=== PATIENT | male | born 1960 | race Caucasian/White ===

== ENCOUNTER 2019-01-27 14:06 | Inpatient (IN) ==
[2019-01-27 14:51] LABS: Basophils # 0.1 K/mcL (0.0-0.2); Basophils % 0.3 %; Eosinophils # 0.2 K/mcL (0.0-0.6); Hematocrit 49.2 % (37.5-50.1); Hemoglobin 15.5 g/dL (12.9-16.9); Immature Granulocytes % 0.7 % (0-4); Lymphocytes # 1.4 K/mcL (0.6-4.6); Lymphocytes % 7.8 %; Mean Corpuscular HGB Conc 31.5 g/dL (31.6-35.5); Mean Corpuscular Hemoglobin 25.8 pg (28.0-33.3); Mean Corpuscular Volume 81.9 fL (83.0-100.0); Mean Platelet Volume 11.3 fL (9.4-12.4); Monocytes # 1.1 K/mcL (0.0-1.3); Neutrophils # 15.5 K/mcL (1.6-8.9); Platelet Count 293 K/mcL (140-400); Red Blood Count 6.01 M/mcL (4.19-5.50); Red Cell Distribution Width 15.7 % (11.5-14.5); Segmented Neutrophils % 84.2 %; White Blood Count 18.4 K/mcL (4.3-11.1)
[2019-01-27] MEDS ORDERED: 0.9 % Sodium Chloride 1,000 ML IVC ONE (14:53)
[2019-01-27] MEDS ORDERED: Ondansetron 4 MG/2 ML VIAL IVP ONE (14:53)
[2019-01-27] MEDS ORDERED: *HR* HYDROmorphone 2 MG/ML SYRINGE IVP STA ×2 (14:56→17:59)
[2019-01-27] MEDS ORDERED: Isovue-370 500 ML BOTTLE IVP ONE (14:58)
[2019-01-27 15:01] LABS: BUN/Creatinine Ratio 20 (6-26); Blood Urea Nitrogen 16 mg/dL (6-20); Calcium 9.4 mg/dL (8.6-10.3); Carbon Dioxide 23 mEq/L (23-29); Chloride 101 mEq/L (98-107); Glucose 140 mg/dL (70-105); Osmolality,Calculated 285 (280-300); Sodium 136 mEq/L (136-145); eGFR For African Americans > 60 (> 60); eGFR For Non-African Americans > 60 (> 60)
[2019-01-27 16:38] LABS: Alanine Aminotransferase 18 Units/L (7-52); Albumin 4.5 g/dL (3.5-5.7); Albumin/Globulin Ratio 1.3 (1.1-2.2); Alkaline Phosphatase 101 Units/L (34-104); Aspartate Amino Transferase 25 Units/L (13-39); Bilirubin,Direct 0.1 mg/dL (0.0-0.2); Bilirubin,Indirect 0.4 mg/dL (0.0-1.0); Bilirubin,Total 0.5 mg/dL (0.3-1.0); Globulin 3.6 g/dL (2.4-3.5); Lipase 422 Units/L (11-82); Total Protein 8.1 g/dL (6.4-8.9)
[2019-01-27] MEDS ORDERED: Ondansetron 4 MG/2 ML VIAL IVP STA (17:00)
[2019-01-27 17:01] LABS: Bilirubin,Urine Small (Negative); Blood,Urine Negative (Negative); Clarity,Urine Clear (Clear); Color,Urine Dark Yellow (Yellow); Glucose,Urine (UA) Normal (Normal); Ketones,Urine Trace mg/dL (Negative); Leukocyte Esterase,Urine Negative (Negative); Nitrite,Urine Negative (Negative); Protein,Urine 100 mg/dL (Neg-Trace); Specific Gravity,Urine > 1.030 (1.010-1.025); Urobilinogen,Urine Normal (Normal)
[2019-01-27 17:05] LABS: Bacteria,Urine None Seen per hpf (None-Few); Hyaline Casts,Urine Moderate per lpf (None-Few); Squamous Epithelial Cell,Urine Many per lpf (None-Few)
[2019-01-27 17:21] LABS: Mucus,Urine Moderate (Few)
[2019-01-27] MEDS ORDERED: *HR* Metoprolol 5 MG/5 ML VIAL IVP PRN (20:35)
[2019-01-27] MEDS: 0.9 % Sodium Chloride 1,000 ML IVC SCH (21:50)
[2019-01-27] MEDS: Piperacillin/Tazobactam 3.375 GM in 0.9 % Sodium Chloride Mini Bag 100 ML IVPB SCH (21:50)
[2019-01-27] MEDS: Ondansetron 4 MG/2 ML VIAL IVP PRN (21:51)
[2019-01-28 02:50] LABS: Basophils % 0.2 %; Eosinophils % 0.1 %; Hematocrit 44.8 % (37.5-50.1); Immature Granulocytes % 0.4 % (0-4); Lymphocytes % 6.6 %; Mean Corpuscular HGB Conc 31.3 g/dL (31.6-35.5); Mean Corpuscular Hemoglobin 25.6 pg (28.0-33.3); Mean Corpuscular Volume 82.1 fL (83.0-100.0); Mean Platelet Volume 11.1 fL (9.4-12.4); Monocytes # 0.9 K/mcL (0.0-1.3); Neutrophils # 12.9 K/mcL (1.6-8.9); Platelet Count 263 K/mcL (140-400); Red Blood Count 5.46 M/mcL (4.19-5.50); Red Cell Distribution Width 15.6 % (11.5-14.5); Segmented Neutrophils % 86.7 %; White Blood Count 14.9 K/mcL (4.3-11.1)
[2019-01-28 03:09] LABS: Amylase 69 Units/L (29-103); BUN/Creatinine Ratio 22 (6-26); Blood Urea Nitrogen 15 mg/dL (6-20); Calcium 8.5 mg/dL (8.6-10.3); Carbon Dioxide 25 mEq/L (23-29); Chloride 103 mEq/L (98-107); Glucose 139 mg/dL (70-105); Lipase 68 Units/L (11-82); Osmolality,Calculated 287 (280-300); Potassium 4.1 mEq/L (3.5-5.1); Sodium 137 mEq/L (136-145); eGFR For African Americans > 60 (> 60); eGFR For Non-African Americans > 60 (> 60)
[2019-01-28] MEDS: Ondansetron 4 MG/2 ML VIAL IVP PRN (04:42)
[2019-01-28] MEDS: *HR* Heparin 5,000 UNIT/ML VIAL SQ SCH ×2 (06:30→17:37)
[2019-01-28] MEDS: Piperacillin/Tazobactam 3.375 GM in 0.9 % Sodium Chloride Mini Bag 100 ML IVPB SCH ×2 (06:30→16:08)
[2019-01-28] MEDS: Pantoprazole 40 MG VIAL IVP SCH (08:38)
[2019-01-28] MEDS: 0.9 % Sodium Chloride 1,000 ML IVC SCH (11:40)
[2019-01-29] MEDS ORDERED: Saline Nasal Spray 44 ML BOTTLE NS PRN (00:39)
[2019-01-29] MEDS: Piperacillin/Tazobactam 3.375 GM in 0.9 % Sodium Chloride Mini Bag 100 ML IVPB SCH ×3 (01:59→19:03)
[2019-01-29 02:49] LABS: Basophils # 0.1 K/mcL (0.0-0.2); Basophils % 0.6 %; Eosinophils # 0.2 K/mcL (0.0-0.6); Hematocrit 40.2 % (37.5-50.1); Immature Granulocytes % 0.5 % (0-4); Lymphocytes # 2.3 K/mcL (0.6-4.6); Lymphocytes % 19.6 %; Mean Corpuscular HGB Conc 30.6 g/dL (31.6-35.5); Mean Corpuscular Hemoglobin 25.3 pg (28.0-33.3); Mean Corpuscular Volume 82.7 fL (83.0-100.0); Monocytes % 8.7 %; Neutrophils # 7.9 K/mcL (1.6-8.9); Platelet Count 240 K/mcL (140-400); Red Blood Count 4.86 M/mcL (4.19-5.50); Red Cell Distribution Width 15.7 % (11.5-14.5); Segmented Neutrophils % 68.6 %; White Blood Count 11.6 K/mcL (4.3-11.1)
[2019-01-29 02:50] LABS: Hemoglobin 12.3 g/dL (12.9-16.9)
[2019-01-29 03:14] LABS: BUN/Creatinine Ratio 23 (6-26); Blood Urea Nitrogen 14 mg/dL (6-20); Calcium 7.9 mg/dL (8.6-10.3); Carbon Dioxide 24 mEq/L (23-29); Chloride 103 mEq/L (98-107); Glucose 87 mg/dL (70-105); Osmolality,Calculated 282 (280-300); Potassium 3.5 mEq/L (3.5-5.1); Sodium 136 mEq/L (136-145); eGFR For African Americans > 60 (> 60); eGFR For Non-African Americans > 60 (> 60)
[2019-01-29] MEDS: 0.9 % Sodium Chloride 1,000 ML IVC SCH ×2 (05:41→19:03)
[2019-01-29] MEDS: *HR* Heparin 5,000 UNIT/ML VIAL SQ SCH ×2 (05:42→19:04)
[2019-01-29] MEDS: Pantoprazole 40 MG VIAL IVP SCH (08:52)
[2019-01-29 14:56] VITALS: BP 135/83
== END 2019-01-29 20:00 | disposition home or self-care (01) | DRG 394 ==
LOC: 3ANU 14:06 → EMEROOARM 14:06 → 3ANU 19:37
PROVIDERS: ADMIT Surgery; ATTEND Surgery

== ENCOUNTER 2020-01-17 20:43 | Inpatient (IN) ==
[2020-01-17] MEDS ORDERED: 0.9 % Sodium Chloride 1,000 ML IVC ONE (21:16)
[2020-01-17] MEDS ORDERED: Isovue-370 500 ML BOTTLE IVP ONE (21:25)
[2020-01-17 22:00] LABS: Bacteria,Urine Few per hpf (None-Few); Bilirubin,Urine Negative (Negative); Blood,Urine Trace (Negative); Clarity,Urine Clear (Clear); Color,Urine Light-Yellow (Yellow); Glucose,Urine (UA) Normal (Normal); Ketones,Urine Negative (Negative); Leukocyte Esterase,Urine Small (Negative); Mucus,Urine Few per lpf (None-Few); Nitrite,Urine Negative (Negative); PH,Urine 6.5 pH Units (5.0-8.0); Protein,Urine Trace mg/dL (Neg-Trace); Specific Gravity,Urine 1.028 (1.010-1.025); Squamous Epithelial Cell,Urine Few per hpf (None-Few); WBC,Urine 15-30 per hpf (0-3)
[2020-01-17 22:03] LABS: Basophils % 0.4 %; Eosinophils # 0.1 K/mcL (0.0-0.6); Eosinophils % 0.7 %; Hematocrit 40.2 % (37.5-50.1); Hemoglobin 12.6 g/dL (12.9-16.9); Immature Granulocytes % 0.4 % (0-4); Lymphocytes # 0.6 K/mcL (0.6-4.6); Lymphocytes % 5.4 %; Mean Corpuscular HGB Conc 31.3 g/dL (31.6-35.5); Mean Corpuscular Hemoglobin 24.9 pg (28.0-33.3); Mean Corpuscular Volume 79.4 fL (83.0-100.0); Mean Platelet Volume 10.5 fL (9.4-12.4); Monocytes # 0.6 K/mcL (0.0-1.3); Monocytes % 5.5 %; Platelet Count 214 K/mcL (140-400); Red Blood Count 5.06 M/mcL (4.19-5.50); Red Cell Distribution Width 14.8 % (11.5-14.5); Segmented Neutrophils % 87.6 %; White Blood Count 11.4 K/mcL (4.3-11.1)
[2020-01-17 22:07] LABS: INR 1.2; Prothrombin Time 14.3 Seconds (9.4-12.1)
[2020-01-17 22:09] LABS: Activated Partial Thrombo Time 33.8 Seconds (26.0-36.0)
[2020-01-17 22:24] LABS: Alanine Aminotransferase 13 Units/L (7-52); Albumin 3.8 g/dL (3.5-5.7); Albumin/Globulin Ratio 1.1 (1.1-2.2); Alkaline Phosphatase 82 Units/L (34-104); Aspartate Amino Transferase 18 Units/L (13-39); BUN/Creatinine Ratio 21 (6-26); Bilirubin,Direct 0.1 mg/dL (0.0-0.2); Bilirubin,Indirect 0.3 mg/dL (0.0-1.0); Bilirubin,Total 0.4 mg/dL (0.3-1.0); Blood Urea Nitrogen 12 mg/dL (8-23); Calcium 8.4 mg/dL (8.6-10.3); Carbon Dioxide 26 mEq/L (23-29); Chloride 102 mEq/L (98-107); Globulin 3.5 g/dL (2.4-3.5); Glucose 118 mg/dL (70-105); Magnesium 1.8 mg/dL (1.6-2.6); Osmolality,Calculated 287 (280-300); Potassium 3.6 mEq/L (3.5-5.1); Sodium 138 mEq/L (136-145); Total Protein 7.3 g/dL (6.4-8.9); Troponin I < 0.03 ng/mL (< 0.04); eGFR For African Americans > 60 (> 60); eGFR For Non-African Americans > 60 (> 60)
[2020-01-17] MEDS ORDERED: Isovue-370 500 ML BOTTLE PO ONE (22:42)
[2020-01-18] MEDS ORDERED: Isovue-370 500 ML BOTTLE IVP ONE (01:34)
[2020-01-18] MEDS ORDERED: Piperacillin/Tazobactam 3.375 GM in 0.9 % Sodium Chloride Mini Bag 100 ML IVPB ONE (01:35)
[2020-01-18] MEDS ORDERED: Vancomycin 2,000 MG/520 ML IV.SOLN IVPB ONE ×2 (01:45→14:00)
[2020-01-18] MEDS ORDERED: Naloxone 0.4 MG/ML INJ IVP PRN (07:35)
[2020-01-18] MEDS ORDERED: Ondansetron 4 MG/2 ML VIAL IVP PRN (07:35)
[2020-01-18] MEDS ORDERED: Saline Nasal Spray 44 ML BOTTLE NS ONE (09:49)
[2020-01-18] MEDS: 0.9 % Sodium Chloride 1,000 ML IVC SCH ×2 (09:55→21:23)
[2020-01-18] MEDS ORDERED: Piperacillin/Tazobactam 3.375 GM in 0.9 % Sodium Chloride Mini Bag 100 ML IVPB SCH (10:00)
[2020-01-18] MEDS: Fluticasone Propionate Nasal 50 MCG/SPRAY BOTTLE NS SCH (10:39)
[2020-01-18] MEDS: Acetaminophen 325 MG TABLET PO PRN ×2 (12:22→21:14)
[2020-01-18] MEDS: Piperacillin/Tazobactam 3.375 GM in 0.9 % Sodium Chloride Mini Bag 100 ML IVPB SCH ×2 (13:30→21:14)
[2020-01-18 15:50] LABS: Albumin 3.4 g/dL (3.5-5.7); Albumin/Globulin Ratio 1.2 (1.1-2.2); Bilirubin,Direct 0.2 mg/dL (0.0-0.2); Bilirubin,Indirect 0.3 mg/dL (0.0-1.0); Bilirubin,Total 0.5 mg/dL (0.3-1.0); Globulin 2.9 g/dL (2.4-3.5); Total Protein 6.3 g/dL (6.4-8.9)
[2020-01-18] MEDS: *HR* Heparin 5,000 UNIT/ML VIAL SQ SCH (17:18)
[2020-01-19] MEDS: Vancomycin 1,500 MG/265 ML IV.SOLN IVPB SCH ×2 (01:34→18:02)
[2020-01-19] MEDS: Acetaminophen 325 MG TABLET PO PRN ×3 (05:27→20:16)
[2020-01-19] MEDS: Piperacillin/Tazobactam 3.375 GM in 0.9 % Sodium Chloride Mini Bag 100 ML IVPB SCH ×3 (05:27→22:09)
[2020-01-19] MEDS: *HR* Heparin 5,000 UNIT/ML VIAL SQ SCH ×2 (05:28→19:28)
[2020-01-19 05:59] LABS: Basophils # 0.1 K/mcL (0.0-0.2); Basophils % 0.6 %; Eosinophils % 0.3 %; Hematocrit 38.9 % (37.5-50.1); Hemoglobin 11.6 g/dL (12.9-16.9); Immature Granulocytes % 0.6 % (0-4); Lymphocytes # 1.4 K/mcL (0.6-4.6); Lymphocytes % 15.9 %; Mean Corpuscular HGB Conc 29.8 g/dL (31.6-35.5); Mean Corpuscular Hemoglobin 24.5 pg (28.0-33.3); Mean Corpuscular Volume 82.1 fL (83.0-100.0); Mean Platelet Volume 11.3 fL (9.4-12.4); Monocytes # 0.9 K/mcL (0.0-1.3); Monocytes % 10.5 %; Neutrophils # 6.2 K/mcL (1.6-8.9); Platelet Count 171 K/mcL (140-400); Red Blood Count 4.74 M/mcL (4.19-5.50); Segmented Neutrophils % 72.1 %; White Blood Count 8.6 K/mcL (4.3-11.1)
[2020-01-19 07:17] LABS: BUN/Creatinine Ratio 11 (6-26); Blood Urea Nitrogen 7 mg/dL (8-23); Calcium 8.1 mg/dL (8.6-10.3); Carbon Dioxide 26 mEq/L (23-29); Chloride 102 mEq/L (98-107); Glucose 100 mg/dL (70-105); Osmolality,Calculated 278 (280-300); Phosphorous 2.5 mg/dL (2.7-4.5); Potassium 3.3 mEq/L (3.5-5.1); Sodium 135 mEq/L (136-145); eGFR For African Americans > 60 (> 60); eGFR For Non-African Americans > 60 (> 60)
[2020-01-19] MEDS: 0.9 % Sodium Chloride 1,000 ML IVC SCH (10:35)
[2020-01-19] MEDS: Cholecalciferol (D-3) 1,000 UNIT (25MCG) TABLET PO SCH (10:36)
[2020-01-19] MEDS: Loratadine 10 MG TABLET PO SCH (10:36)
[2020-01-19] MEDS: Fluticasone Propionate Nasal 50 MCG/SPRAY BOTTLE NS SCH (10:37)
[2020-01-19] MEDS: Cyanocobalamin (B-12) 1,000 MCG TABLET PO SCH (10:40)
[2020-01-19] MEDS: Vancomycin 2,000 MG/520 ML IV.SOLN IVPB SCH (16:29)
[2020-01-19] MEDS: Diclofenac Sodium (DR) 75 MG TABLET.DR PO PRN (20:16)
[2020-01-20] MEDS: Piperacillin/Tazobactam 3.375 GM in 0.9 % Sodium Chloride Mini Bag 100 ML IVPB SCH ×3 (05:14→21:28)
[2020-01-20] MEDS: *HR* Heparin 5,000 UNIT/ML VIAL SQ SCH ×2 (05:15→18:00)
[2020-01-20] MEDS: Vancomycin 2,000 MG/520 ML IV.SOLN IVPB SCH ×2 (05:15→18:01)
[2020-01-20] MEDS: 0.9 % Sodium Chloride 1,000 ML IVC SCH (05:16)
[2020-01-20 07:12] LABS: Basophils % 0.7 %; Eosinophils # 0.2 K/mcL (0.0-0.6); Hematocrit 38.2 % (37.5-50.1); Hemoglobin 11.6 g/dL (12.9-16.9); Immature Granulocytes % 0.9 % (0-4); Lymphocytes # 1.2 K/mcL (0.6-4.6); Mean Corpuscular HGB Conc 30.4 g/dL (31.6-35.5); Mean Corpuscular Hemoglobin 24.9 pg (28.0-33.3); Mean Platelet Volume 10.8 fL (9.4-12.4); Monocytes # 0.7 K/mcL (0.0-1.3); Monocytes % 12.1 %; Neutrophils # 3.5 K/mcL (1.6-8.9); Platelet Count 182 K/mcL (140-400); Red Blood Count 4.66 M/mcL (4.19-5.50); Red Cell Distribution Width 15.1 % (11.5-14.5); Segmented Neutrophils % 61.3 %; White Blood Count 5.7 K/mcL (4.3-11.1)
[2020-01-20 07:25] LABS: BUN/Creatinine Ratio 18 (6-26); Blood Urea Nitrogen 9 mg/dL (8-23); Calcium 8.2 mg/dL (8.6-10.3); Carbon Dioxide 26 mEq/L (23-29); Chloride 108 mEq/L (98-107); Glucose 102 mg/dL (70-105); Magnesium 2.1 mg/dL (1.6-2.6); Osmolality,Calculated 291 (280-300); Phosphorous 3.5 mg/dL (2.7-4.5); Potassium 3.6 mEq/L (3.5-5.1); Sodium 141 mEq/L (136-145); eGFR For African Americans > 60 (> 60); eGFR For Non-African Americans > 60 (> 60)
[2020-01-20] MEDS: Fluticasone Propionate Nasal 50 MCG/SPRAY BOTTLE NS SCH (08:56)
[2020-01-20] MEDS: Cholecalciferol (D-3) 1,000 UNIT (25MCG) TABLET PO SCH (08:57)
[2020-01-20] MEDS: Loratadine 10 MG TABLET PO SCH (08:57)
[2020-01-20] MEDS: Diclofenac Sodium (DR) 75 MG TABLET.DR PO PRN ×2 (09:00→21:28)
[2020-01-20] MEDS: Acetaminophen 325 MG TABLET PO PRN (18:10)
[2020-01-21 04:06] LABS: Basophils % 0.7 %; Eosinophils # 0.3 K/mcL (0.0-0.6); Hematocrit 37.9 % (37.5-50.1); Hemoglobin 11.6 g/dL (12.9-16.9); Immature Granulocytes % 0.9 % (0-4); Lymphocytes # 1.6 K/mcL (0.6-4.6); Lymphocytes % 27.2 %; Mean Corpuscular HGB Conc 30.6 g/dL (31.6-35.5); Mean Corpuscular Hemoglobin 25.1 pg (28.0-33.3); Mean Platelet Volume 11.2 fL (9.4-12.4); Monocytes # 0.6 K/mcL (0.0-1.3); Monocytes % 10.7 %; Neutrophils # 3.2 K/mcL (1.6-8.9); Platelet Count 208 K/mcL (140-400); Red Blood Count 4.62 M/mcL (4.19-5.50); Segmented Neutrophils % 55.5 %; White Blood Count 5.8 K/mcL (4.3-11.1)
[2020-01-21 04:18] LABS: BUN/Creatinine Ratio 17 (6-26); Blood Urea Nitrogen 10 mg/dL (8-23); Calcium 8.2 mg/dL (8.6-10.3); Carbon Dioxide 26 mEq/L (23-29); Chloride 104 mEq/L (98-107); Glucose 91 mg/dL (70-105); Osmolality,Calculated 285 (280-300); Phosphorous 4.9 mg/dL (2.7-4.5); Potassium 3.4 mEq/L (3.5-5.1); Sodium 138 mEq/L (136-145); eGFR For African Americans > 60 (> 60); eGFR For Non-African Americans > 60 (> 60)
[2020-01-21] MEDS: Vancomycin 2,000 MG/520 ML IV.SOLN IVPB SCH ×2 (04:44→14:57)
[2020-01-21] MEDS: Piperacillin/Tazobactam 3.375 GM in 0.9 % Sodium Chloride Mini Bag 100 ML IVPB SCH ×3 (04:45→21:35)
[2020-01-21] MEDS: *HR* Heparin 5,000 UNIT/ML VIAL SQ SCH ×2 (04:49→17:17)
[2020-01-21] MEDS: Loratadine 10 MG TABLET PO SCH (08:34)
[2020-01-21] MEDS: Cholecalciferol (D-3) 1,000 UNIT (25MCG) TABLET PO SCH (08:34)
[2020-01-21] MEDS: Fluticasone Propionate Nasal 50 MCG/SPRAY BOTTLE NS SCH (08:34)
[2020-01-21] MEDS: Diclofenac Sodium (DR) 75 MG TABLET.DR PO PRN ×2 (10:39→21:35)
[2020-01-21] MEDS: Acetaminophen 325 MG TABLET PO PRN ×2 (15:04→21:35)
[2020-01-21] MEDS ORDERED: Piperacillin/Tazobactam 3.375 GM VIAL ONE (21:21)
[2020-01-22 04:43] LABS: Basophils # 0.1 K/mcL (0.0-0.2); Basophils % 0.7 %; Eosinophils # 0.3 K/mcL (0.0-0.6); Eosinophils % 4.7 %; Hematocrit 38.3 % (37.5-50.1); Hemoglobin 11.7 g/dL (12.9-16.9); Lymphocytes # 1.5 K/mcL (0.6-4.6); Lymphocytes % 21.5 %; Mean Corpuscular HGB Conc 30.5 g/dL (31.6-35.5); Mean Corpuscular Hemoglobin 25.4 pg (28.0-33.3); Mean Corpuscular Volume 83.1 fL (83.0-100.0); Mean Platelet Volume 10.4 fL (9.4-12.4); Monocytes # 0.6 K/mcL (0.0-1.3); Monocytes % 8.5 %; Neutrophils # 4.4 K/mcL (1.6-8.9); Platelet Count 197 K/mcL (140-400); Red Blood Count 4.61 M/mcL (4.19-5.50); Red Cell Distribution Width 14.7 % (11.5-14.5); Segmented Neutrophils % 63.6 %; White Blood Count 6.8 K/mcL (4.3-11.1)
[2020-01-22 05:03] LABS: BUN/Creatinine Ratio 18 (6-26); Blood Urea Nitrogen 10 mg/dL (8-23); Calcium 7.9 mg/dL (8.6-10.3); Carbon Dioxide 26 mEq/L (23-29); Chloride 105 mEq/L (98-107); Glucose 92 mg/dL (70-105); Magnesium 1.9 mg/dL (1.6-2.6); Osmolality,Calculated 285 (280-300); Phosphorous 4.3 mg/dL (2.7-4.5); Potassium 3.6 mEq/L (3.5-5.1); Sodium 138 mEq/L (136-145); eGFR For African Americans > 60 (> 60); eGFR For Non-African Americans > 60 (> 60)
[2020-01-22] MEDS: Vancomycin 2,000 MG/520 ML IV.SOLN IVPB SCH (05:17)
[2020-01-22] MEDS: *HR* Heparin 5,000 UNIT/ML VIAL SQ SCH (05:18)
[2020-01-22] MEDS: Piperacillin/Tazobactam 3.375 GM in 0.9 % Sodium Chloride Mini Bag 100 ML IVPB SCH (05:18)
[2020-01-22] MEDS: 0.9 % Sodium Chloride 1,000 ML IVC SCH (07:12)
[2020-01-22 07:47] VITALS: BP 125/79
[2020-01-22] MEDS: Loratadine 10 MG TABLET PO SCH (07:59)
[2020-01-22] MEDS: Cholecalciferol (D-3) 1,000 UNIT (25MCG) TABLET PO SCH (08:00)
[2020-01-22] MEDS: Cyanocobalamin (B-12) 1,000 MCG TABLET PO SCH (08:00)
[2020-01-22] MEDS: Fluticasone Propionate Nasal 50 MCG/SPRAY BOTTLE NS SCH (08:00)
== END 2020-01-22 11:46 | disposition home or self-care (01) | DRG 872 ==
LOC: EMEROOARM 20:43 → 3ANU 20:43
PROVIDERS: ADMIT Internal Medicine; ATTEND Internal Medicine